=== PATIENT | female | born 1945 | race Caucasian/White ===

== ENCOUNTER → 2017-10-09 | Outpatient (CLI) | payer BC ==
[~2017-10-09] MED LIST: GADOBENATE 529MG/1ML 15ML VIAL IVP ONE
--- NOTE | 2017-10-09 14:38 | RADIOLOGY IMAGING REPORT ---
FACILITY: [facility] [place] PATIENT NAME: eLonor Rojas : 1945 MR: [id number] V: [id number] EXAM DATE: ORDERING PHYSICIAN: CHRISTOFER ADAN TECHNOLOGIST: Location: [facility] Patient: Leonor Rojas : 1945 Visit/Account:[id number] Date of Sevice: 10/09/2017 EXAMINATION: MRI brain without IV contrast MRI brain with IV contrast HISTORY: Vertigo, dizziness and giddiness. COMPARISON: None. TECHNIQUE: Multi-planar, multi-sequence brain MRI was performed before and after IV gadolinium. CONTRAST: 12 mL of IV MultiHance gadolinium. FINDINGS: Brain volume: Normal. Sagittal midline structures: Normal. Ventricles: Normal. Acute ischemic changes: No diffusion restriction present to suggest acute ischemia. Hemorrhage: No acute hemorrhage or hemosiderin staining. Masses/edema: None. Enhancement: There is no abnormal intracranial enhancement. Painter-white: Negative. White matter: Patchy T2/FLAIR hyperintensities in the deep white matter bilaterally. Vessels: Normal. Extra-axial: None. Calvarium/scalp: Negative. Skull base: Negative. Visualized sinuses/orbits: Negative. Visualized upper neck: Negative. IMPRESSION: 1. No acute infarct, hemorrhage or intracranial mass lesion. 2. Moderate nonspecific white matter disease is suspicious for chronic small vessel ischemia. Report Dictated By: Jo Ann Lemon MD at 10/09/2017 2:30 PM Report E-Signed By: Jo Ann Lemon MD at 10/09/2017 2:32 PM [id number]
== END ==
LOC: MRI 07:03
PROVIDERS: ATTEND Family Medicine
DX: R90.82 White matter disease, unspecified (principal)
CPT/HCPCS: 70553; A9577

== ENCOUNTER 2018-01-15 02:51 | Day surgery (SDC) | payer BC ==
[~2018-01-15] VITALS: Ht 154.9 cm; Wt 56.2 kg
[~2018-01-15 02:51] MED LIST changes: +ASPI-1471 PO; +CALC600T63 PO; -GADOBENATE 529MG/1ML 15ML VIAL IVP ONE; +NIAC500C12 PO
[2018-01-15] MEDS ORDERED: PROPOFOL EMUL(*) 10MG/ML 20 ML 40 ML ONE (08:00)
[2018-01-15] MEDS ORDERED: LIDOCAINE MPF 1% 5 ML VIAL ONE (08:00)
--- NOTE | 2018-01-15 08:06 | Post Operative Progress Note ---
Post Operative Progress Note Date: January 15, 2018 Time: 11:02 Surgeon: conrado Anesthesia: dr valdez Pre-Op Diagnosis: history of polyps Post-Op Diagnosis: sigmoid divertiulosis Procedure(s): colonoscopy ALISTAIR MCCONNELL MD January 15, 2018 08:06
--- NOTE | 2018-01-15 08:07 | Short(Outpt) Discharge Summary ---
Discharge Summary Reason for Hosp/Final Diag: (1) Encounter for colonoscopy due to history of adenomatous colonic polyps Hospital Course & Plan: sigmoid diverticulosis Departure Discharge to: Home Discharge Instructions Home Meds Reported Medications Niacin (NIACIN) 500 Mg Capsule.er, 500 MG PO QDAY 01/09/18 Aspirin (ASPIR 81) 81 Mg Tablet.dr, 81 MG PO QDAY, TAB 01/09/18 Calcium Carbonate (CALCIUM) 600 Mg Tablet, 600 MG PO QDAY 01/09/18 Diet: High Fiber Activity: As Tolerated ALISTAIR MCCONNELL MD January 15, 2018 08:06
[2018-01-15 10:00] VITALS: BP 154/85
[2018-01-15] MEDS ORDERED: LIDOCAINE/SOD BICARB 8.4% SYR ID ONE (10:40)
[2018-01-15] MEDS ORDERED: NORMOSOL R SOLN(*) 1000 ML BAG 1,000 ML IV PRN (10:40)
[2018-01-15 11:02] VITALS: BP 114/67
[2018-01-15 11:30] VITALS: BP 119/73
[2018-01-15 11:56] VITALS: BP 138/81
[2018-01-15 11:58] VITALS: BP 133/72
--- NOTE | 2018-01-15 16:23 | OPERATIVE REPORT 1 ---
EVENT DATE: January 15, 2018 SURGEON: Mejia Beasley MD ANESTHESIOLOGIST: Jason Arevalo MD ANESTHESIA: Sedation. PREOPERATIVE DIAGNOSIS History of polyps. POSTOPERATIVE DIAGNOSIS Sigmoid diverticula. PROCEDURE PERFORMED Colonoscopy. DESCRIPTION OF PROCEDURE Patient was placed in the left lateral decubitus position and given intravenous sedation. Digital examination revealed a pedunculated external hemorrhoidal skin tag. No other abnormalities. Flexible colonoscope was inserted and advanced to the cecum. Ileocecal valve and base of the cecum were identified. She had an excellent bowel prep. Scope was slowly withdrawn. Care was taken to look behind the haustral folds. No abnormalities were noted in the cecum, right colon, transverse, or descending colon. She had multiple diverticula in the sigmoid colon. No evidence of diverticulitis. Rectum was normal. Scope was retroflexed. The pedunculated hemorrhoidal skin tag was noted. No other abnormalities. [facility]
== END 2018-01-15 12:19 | disposition home or self-care (01) ==
LOC: OR 02:51
PROVIDERS: ATTEND Surgery
DX: Z12.11 Encounter for screening for malignant neoplasm of colon (principal); K57.30 Diverticulosis of large intestine without perforation or abscess without bleeding
CPT/HCPCS: 00812; 45378; J2001; J2704